=== PATIENT | male | born 1945 | race Caucasian/White ===

== ENCOUNTER → 2016-05-01 | Outpatient (CLI) | payer OTHER, BC ==
[~2016-05-01] MED LIST: OMEP40CA PO; PRED1SUS3 OPL; TRIA3AER NAE
[2016-05-01 13:17] LABS: ALT/SGPT 26 U/L (12-78); AST/SGOT 21 U/L (15-37); BLOOD UREA NITROGEN 11 mg/dl (7-18); BUN/CREATININE RATIO 11.6 (10-20); CALCIUM 8.7 mg/dl (8.5-10.1); CARBON DIOXIDE 25 mmol/L (21-32); CHLORIDE 108 mmol/L (98-107); CHOLESTEROL 247 mg/dl (0-200); CREATININE 0.92 mg/dl (0.60-1.40); GLUCOSE 106 mg/dl (70-99); POTASSIUM 4.3 mmol/L (3.5-5.1); SODIUM 142 mmol/L (136-145); TRIGLYCERIDES 59 mg/dl (0-150); VERY LOW DENSITY LIPOPROT CALC 12 mg/dl
[2016-05-01 13:23] LABS: ALB/GLOB RATIO 1.1 (0.9-2); ALKALINE PHOSPHATASE 66 U/L (45-117); CHOLESTEROL/HDL RATIO 2.7; HDL CHOLESTEROL 90 mg/dl; LDL CHOLESTEROL CALCULATED 145 mg/dl
[2016-05-01 13:54] LABS: ESTIMATED AVERAGE GLUCOSE 120 mg/dl; HA1C FLAG Normal (Normal)
--- NOTE | 2016-05-08 13:10 | CODING QUERY MEDICAL NECESSITY ---
SUPPORTING DIAGNOSIS NEEDED A supporting diagnosis is required for the test/procedure performed on this patient in order for us to be reimbursed by the patient's insurance. Please provide a supporting diagnosis for the following test/procedure listed below next to the test name along with your signature. *If there is no additional diagnosis for this patient that would support the following test/procedure please document that below next to the test/procedure. Test(s)/Procedure(s) that require a supporting diagnosis: * GLYCATED HEMOGLOBIN DIAGNOSIS: * PSA DIAGNOSIS: * DOS: 05/01/16 Provider Signature: Date: Thank you Queta Tolbert Health Information Management Once completed, please kindly fax back to [phone] For questions please call [phone]
== END | disposition home or self-care (01) ==
LOC: C.LABPBG 10:40
PROVIDERS: ATTEND Internal Medicine
DX: M48.00 Spinal stenosis, site unspecified (principal); N40.1 Benign prostatic hyperplasia with lower urinary tract symptoms; Z00.00 Encounter for general adult medical examination without abnormal findings

== ENCOUNTER → 2016-07-10 | Outpatient (CLI) | payer OTHER, BC ==
[~2016-07-10] MED LIST changes: -PRED1SUS3 OPL
--- NOTE | 2016-07-10 15:35 | DIAGNOSTIC IMAGING REPORT ---
LUMBAR SPINE MRI HISTORY: Back pain LUMBAGO, LUMBAR SPINAL STENOSIS TECHNIQUE: Multiplanar multisequence MRI of the lumbar spine was performed without the use of contrast. COMPARISON: 05/10/2015 FINDINGS: For the purpose of the report the L5-S1 disc space will be located on axial image 23 of 25. Moderate degenerative disc change throughout the entire lumbar region. This is unchanged in the prior exam. L1-L2: No significant central canal or neural foraminal narrowing. L2-L3: Broad-based bulging disc. Unchanged in the prior study. Mild anterior posterior dimension narrowing of the spinal canal. L3-L4: Broad-based posterior bulging disc. Moderate multifactorial narrowing of the spinal canal. Moderate narrowing of the neuroforamina bilaterally. L4-L5: Broad-based left central disc herniation. Prior left posterior hemilaminotomy. Moderate narrowing left neuroforamina unchanged. Moderate multilevel factorial narrowing of spinal canal unchanged. L5-S1: Mild broad-based bulging disc. No major change in the prior study. Mild narrowing of the neuroforamina bilaterally. IMPRESSION: 1. Multifactorial multilevel moderate narrowing of the spinal canal. 2. Multilevel broad-based bulging disc unchanged from the prior study. 3. Study is essentially identical to the prior exam no new or interval finding. Electronically signed by: David Barros M.D. 07/10/2016 3:33 PM Dictated Date/Time: 07/10/2016 3:28 PM
== END | disposition home or self-care (01) ==
LOC: C.MRIBC 14:21
PROVIDERS: ATTEND Physician Assistant
DX: M54.5 Low back pain (principal); M48.06 Spinal stenosis, lumbar region; M51.26 Other intervertebral disc displacement, lumbar region

== ENCOUNTER → 2016-08-15 | Outpatient (CLI) | payer OTHER, BC ==
[2016-08-15 14:35] LABS: LYME DISEASE AB IGM NEG (NEG)
[2016-08-15 14:38] LABS: LYME DISEASE AB IGG NEG (NEG)
[2016-08-19 23:28] LABS: 18KDIGG BAND NONREACTIVE (NONREACTIVE); 23KDIGG BAND NONREACTIVE (NONREACTIVE); 23KDIGM BAND NONREACTIVE (NONREACTIVE); 28KDIGG BAND NONREACTIVE (NONREACTIVE); 30KDIGG BAND NONREACTIVE (NONREACTIVE); 39KDIGG BAND NONREACTIVE (NONREACTIVE); 39KDIGM BAND NONREACTIVE (NONREACTIVE); 41KDIGG BAND REACTIVE (NONREACTIVE); 41KDIGM BAND NONREACTIVE (NONREACTIVE); 45KDIGG BAND NONREACTIVE (NONREACTIVE); 58KDIGG BAND NONREACTIVE (NONREACTIVE); 66KDIGG BAND REACTIVE (NONREACTIVE); 93KDIGG BAND NONREACTIVE (NONREACTIVE)
== END | disposition home or self-care (01) ==
LOC: C.LAB1850 11:46
PROVIDERS: ATTEND Dermatology
DX: T14.8 Other injury of unspecified body region (principal); W57.XXXA Bitten or stung by nonvenomous insect and other nonvenomous arthropods, initial encounter

== ENCOUNTER → 2016-08-15 | Outpatient (CLI) | payer OTHER, BC | END | disposition home or self-care (01) | LOC: C.PATHSPEC 16:35 | PROVIDERS: ATTEND Dermatology | DX: L43.9 Lichen planus, unspecified (principal) ==

== ENCOUNTER → 2016-09-20 | Outpatient (CLI) | payer OTHER, BC | END | disposition home or self-care (01) | LOC: C.PATHSPEC 12:30 | PROVIDERS: ATTEND Dermatology | DX: L81.4 Other melanin hyperpigmentation (principal) ==

== ENCOUNTER → 2017-06-25 | Outpatient (CLI) | payer OTHER, BC ==
--- NOTE | 2017-06-25 14:16 | DIAGNOSTIC IMAGING REPORT ---
FUSION CT SINUSES W/O CLINICAL HISTORY: 71 years-old Male presenting with J32.9 Chronic sinusitis PATIENT HAS SEVERAL YEAR HISTORY OF CHRON. TECHNIQUE: Multidetector CT of the sinuses was performed without the use of intravenous contrast. IV contrast: None. A dose lowering technique was used consistent with the principles of ALARA (as low as reasonably achievable). COMPARISON: None. CT DOSE (mGy.cm): The estimated cumulative dose is 608.56 mGy.cm. FINDINGS: Dedicated Local [employer] topogram: Unremarkable. Mild mucosal thickening in the frontal sinuses with minimal aerated secretions in the left frontal sinus. Mastoid air cells and middle ears clear. No osseous erosion. No significant sclerosis of the sinus landry to suggest chronic sinusitis. Minimal leftward deviation of the inferior aspect of the bony nasal septum without bony bridging. Mucosal thickening mildly narrows the bilateral ostiomeatal units. Mucosal thickening obstructs the right nasal frontoethmoidal recess though the left nasofrontal ethmoidal recesses patent. No other variant anatomy. No bony dehiscence of the carotid siphons or optic canals. Orbits and superficial soft tissues of the face normal. Limited intracranial evaluation within normal limits. Skull base intact. Upper cervical spine normal. IMPRESSION: 1. No CT evidence of chronic sinusitis. Possible acute sinusitis of the frontal sinuses. Resulting narrowing of the nasofrontal ethmoidal recess on the right secondary to mucosal thickening. 2. No significant variant anatomy. Electronically signed by: Anthony Evans M.D. 06/25/2017 2:15 PM Dictated Date/Time: 06/25/2017 2:12 PM
== END | disposition home or self-care (01) ==
LOC: C.CTS 13:26
PROVIDERS: ATTEND Physician Assistant
DX: J32.9 Chronic sinusitis, unspecified (principal)

== ENCOUNTER 2019-01-30 20:51 | Observation (INO) ==
[2019-01-30] MEDS ORDERED: SODIUM CHLORIDE 0.9% 1000ML 1,000 ML IV SCH (22:00)
[2019-01-30 22:19] LABS: Basophils # (auto) 0.07 K/uL (0-0.2); Basophils % (auto) 2.1 %; Eosinophils # (auto) 0.02 K/uL (0-0.5); Eosinophils % (auto) 0.6 %; Hematocrit (blood only) 44.9 % (42-52); Hemoglobin 15.3 g/dL (14.0-18.0); Lymphocytes # (auto) 0.93 K/uL (1.2-3.4); Lymphocytes % (auto) 28.1 %; Mean Corpuscular Hemoglobin 31.2 pg (25-34); Mean Corpuscular Hgb Conc 34.1 g/dL (32-36); Mean Corpuscular Volume 91.6 fL (80-100); Mean Platelet Volume 11.2 fL (7.4-10.4); Monocytes # (auto) 0.58 K/uL (0.11-0.59); Monocytes % (auto) 17.5 %; Neutrophils # (auto) 1.71 K/uL (1.4-6.5); Neutrophils % (auto) 51.7 %; Platelet Count 118 K/uL (130-400); RDW Coefficient of Variation 13.9 % (11.5-14.5); RDW Standard Deviation 46.4 fL (36.4-46.3); White Blood Count 3.31 K/uL (4.8-10.8)
[2019-01-30 22:19] LABS: Appearance Urine Clear (Clear); Bacteria Urine Automated Negative (Negative); Bilirubin Urine Negative (Negative); Blood Urine Negative (Negative); Color Urine Dark Yellow; Glucose Urine UA Negative (Negative); Ketones Urine Trace (Negative); Leukocyte Esterase Urine Negative (Negative); Nitrite Urine Negative (Negative); Protein Urine Trace (Negative); RBC Urine Automated 0-4 /hpf (0-4); Urobilinogen Urine Negative (Negative)
[2019-01-30] MEDS ORDERED: MoRPHine SULFATE 4 MG/ML 1 ML CARP\\VIAL IV STA (22:37)
[2019-01-30] MEDS ORDERED: ONDANSETRON INJ 2 MG/ML 2 ML VIAL IV STA (22:37)
[2019-01-30 22:39] LABS: Giant Platelets 1+
[2019-01-30 22:44] LABS: Albumin Level 3.8 gm/dl (3.4-5.0); BUN Creatinine Ratio 18.4 (10-20); Calcium 9.1 mg/dl (8.5-10.1); Est GFR (Non-African American) 73.3; Potassium 3.8 mmol/L (3.5-5.1)
[2019-01-30 22:46] LABS: Bilirubin,Total 0.4 mg/dl (0.2-1); Globulin 3.8 gm/dl (2.5-4.0); Total Protein 7.6 gm/dl (6.4-8.2)
--- NOTE | 2019-01-30 22:54 | Emergency Department Note ---
Entered by Gloria Hernández acting as a scribe for Kamlesh Forrest MD History of Present Illness General Chief complaint: Abdominal Pain Stated complaint: ABDOMINAL PAIN Time Seen by Provider: 01/30/19 21:38 Source: patient and family () History of Present Illness Onset (ago): month(s) (Onset was 11/24/18) Location: abdomen Maximum Pain Intensity: 3 Quality: + burning and + other (tender, bloating, gas) Relieved By: + other (standing) Exacerbated By: + eating and + rest (laying down) Associated symptoms: + denies other symptoms (pain or swelling in legs, dysuria, hematuria), + fever/chills and + other (diarrhea, weight loss) The patient is a 73 year old male with a PMHx pertinent for hernia, stomach acid, back surgery, kidney stones, and other relevant medical problems as indicated on [employer] who presents to the Emergency Room with complaints of abdominal pain. The patient explains that he began to experience abdominal gas and bloating on 11/24/18. He was seen by a PA and got an ultrasound which revealed a hernia. He explains that his hernia occasional bothers him and that lately the area feels more tender associated with a burning sensation. He also states that he is experiencing fever and chills. The patient reports that he is constantly passing gas and that his stomach "gurgles". He explains that when the gas moves to the site of his hernia he notices that the hernia "pops out". Due to pain, he reports that he has been unable to lay down in bed for the past 3 nights. Additionally, he notes that PO intake exacerbates his pain and due to this he has had lower PO intake for the last few weeks. The patient's presents concern for his 30 lb weight loss. He states that standing up and using Aspercreme relieves his pain. Of note, the patient reports diarrhea 1 week ago which has since resolved after using antibiotics. He denies dysuria, hematuria, and pain or swelling in his legs. The patient offers no additional complaints at this time. Home Medications Home Medications Medication Instructions Recorded Confirmed Type omeprazole 40 mg capsule,delayed 40 mg PO DAILY 12/30/18 01/30/19 History release ibuprofen 400 mg tablet 200 - 400 mg PO Q8H PRN tab 12/31/18 01/30/19 History loratadine 10 mg tablet 10 mg PO DAILY tab 12/31/18 01/30/19 History guaifenesin ER 600 mg tablet, 600 mg PO BID 01/13/19 01/30/19 History extended release 12 hr triamcinolone acetonide 55 mcg 2 sprays INTRANASAL DAILY ml 01/13/19 01/30/19 History nasal spray aerosol vit C 250 mg-E 200 unit-zinc 40 1 tab PO BID cap 01/13/19 01/30/19 History mg-copper 1 [id number]-[id number]-[id number] capsule Allergies Allergy/AdvReac Type Severity Reaction Status Date / Time No Known Allergies Allergy Verified 01/30/19 23:32 Past Med/Surg History Surgical History History of back surgery History of hernia repair History of oral surgery Tooth extraction History of tonsillectomy Family History Daughter Sinus disorder Son Sinus disorder Social History Preferred Language: Gabonese Communication Ability: Effective Awning Craftsperson Required: No Beliefs That Will Affect Care: None Current Living Situation: Spouse Other Information That Helps Us Care for You: No Feels Safe at Home: Yes Safety Concerns: Feels Safe At This Time Smoking Status: Former smoker Tobacco Type: cigarettes ; Hx Alcohol Use: Yes Alcohol type: beer and hard liquor Hx Substance Use: No Review of Systems See HPI for pertinent positives & negatives. and A total of 10 systems reviewed and were otherwise negative Physical Exam Vital Signs Vital Signs - 24 hr 01/31/19 00:50 Pulse Rate [Apical] 94 H Pulse Rhythm [Apical] Regular Pulse Strength [Apical] Normal Respiratory Rate 18 Respiratory Effort / Characteristics Non-Labored Respiratory Depth Normal Blood Pressure [Right Arm] 162/88 H Blood Pressure Mean [Right Arm] 112 Blood Pressure Position [Right Arm] Lying Pulse Oximetry 97 Oxygen Delivery Method Room Air General: Mildly uncomfortable appearing older male in no acute distress. HEENT: Normal cephalic atraumatic. Pupils are equal round and reactive to light. Extraocular movements are intact. Oropharynx is pink with moist mucous membranes. No swelling of the mouth lips or tongue. Neck: Supple with a midline trachea. No meningeal signs or stiffness, no JVD or bruits. No Stridor. Chest: Clear to auscultation bilaterally. No wheezes or rhonchi. No increased work of breathing. Heart: regular rate and rhythm. Abdomen: Soft with minimal tenderness centrally, nondistended without rebound guarding or rigidity. No hernia felt at present. No abscess. Extremities: No cyanosis clubbing or edema. No calf tenderness or asymmetry Spine/Back. Non tender to palpation. No CVA tenderness Skin: Good turgor without rashes. Neurologic exam: Cranial nerves two through 12 are intact. Motor and sensation are intact and symmetrical throughout. Course 2149: Past medical records reviewed. The patient was evaluated in room B07. A complete history and physical exam was performed. 2247: The patient is requesting something for pain and I have ordered him IV morphine and IV Zofran. 2349: The patient is resting comfortably after IV morphine and IV Zofran. I reviewed his blood work with him and his family. Currently waiting on CT scan report. 0039: The patient states that he is feeling better and will be admitted. 0049: Spoke with Dr. Blanton, [facility] Hospitalist who will see the patient. 0059: The patient will be admitted under the care of the hospitalist. The patient verbally expressed understanding and agreement of the treatment plan. The patient will be evaluated for further treatment. Administered Medications Ioversol (Optiray 320 125ml) 119 ml IV ONCE PRN PRN Reason: Interaction Checking Stop: 02/03/19 23:15 Last Admin: 01/30/19 23:17 Dose: 119 ml Documented by: [id number] Loratadine (Claritin) 10 mg PO DAILY EUN Stop: 03/02/19 08:59 Last Admin: 01/31/19 08:11 Dose: 10 mg Documented by: [id number] Morphine Sulfate (Morphine Sulfate) 4 mg IV Q4H PRN PRN Reason: Pain Stop: 02/14/19 02:37 Last Admin: 01/31/19 23:58 Dose: 4 mg Documented by: [id number] Admin: 01/31/19 18:13 Dose: 4 mg Documented by: [id number] Pantoprazole Sodium (Protonix) 40 mg PO BID EUN Stop: 03/02/19 08:59 Last Admin: 01/31/19 20:50 Dose: 40 mg Documented by: [id number] Admin: 01/31/19 08:11 Dose: 40 mg Documented by: [id number] Simethicone (Mylicon) 80 mg PO Q6H EUN Stop: 03/02/19 11:59 Last Admin: 01/31/19 23:44 Dose: 80 mg Documented by: [id number] Admin: 01/31/19 17:29 Dose: 80 mg Documented by: [id number] Admin: 01/31/19 11:54 Dose: 80 mg Documented by: [id number] Discontinued Medications Sodium Chloride (Nss 1000ml) 1,000 mls @ 999 mls/hr IV .Q1H1M EUN Stop: 01/30/19 23:00 Last Infusion: 01/30/19 23:18 Dose: 0 mls/hr Documented by: [id number] Admin: 01/30/19 22:05 Dose: 999 mls/hr Documented by: [id number] Morphine Sulfate (Morphine Sulfate) 4 mg IV NOW STA Stop: 01/30/19 22:38 Last Admin: 01/30/19 22:48 Dose: 4 mg Documented by: [id number] Morphine Sulfate (Morphine Sulfate) 4 mg IV NOW STA Stop: 01/31/19 01:27 Last Admin: 01/31/19 01:52 Dose: 4 mg Documented by: [id number] Morphine Sulfate (Morphine Sulfate) 4 mg IV NOW STA Stop: 01/31/19 01:29 Last Admin: 01/31/19 06:11 Dose: Not Given Documented by: [id number] Ondansetron HCl (Zofran) 4 mg IV NOW STA Stop: 01/30/19 22:38 Last Admin: 01/30/19 22:48 Dose: 4 mg Documented by: [id number] Medical Decision Making Differential Diagnosis Differential diagnosis includes but is not limited to ischemic colitis, bowel obstruction, hernia, kidney stone, aneurysm, electrolyte or metabolic abnormality. Medical Records Attestation: I reviewed the patient's medical records. Home Medications Current Medication List: was personally reviewed by me Laboratory Data Attestation: I reviewed the patient's lab results. Result diagrams: 01/31/19 06:14 01/31/19 06:14 Lab Results 01/30/19 01/30/19 01/30/19 Range/Units 21:00 21:58 21:58 WBC 3.31 L (4.8-10.8) K/uL RBC 4.90 (4.7-6.1) M/uL Hgb 15.3 (14.0-18.0) g/dL Hct 44.9 (42-52) % MCV 91.6 (80-100) fL MCH 31.2 (25-34) pg MCHC 34.1 (32-36) g/dL RDW Std Deviation 46.4 H (36.4-46.3) fL RDW Coeff of Fiona 13.9 (11.5-14.5) % Plt Count 118 L (130-400) K/uL MPV 11.2 H (7.4-10.4) fL Immature Gran % (Auto) 0.0 % Neut % (Auto) 51.7 % Lymph % (Auto) 28.1 % Canyon % (Auto) 17.5 % Eos % (Auto) 0.6 % Baso % (Auto) 2.1 % Immature Gran # (Auto) 0.00 (0.00-0.02) K/uL Neut # (Auto) 1.71 (1.4-6.5) K/uL Lymph # (Auto) 0.93 L (1.2-3.4) K/uL Canyon # (Auto) 0.58 (0.11-0.59) K/uL Eos # (Auto) 0.02 (0-0.5) K/uL Baso # (Auto) 0.07 (0-0.2) K/uL Giant Platelets 1+ Sodium 135 L (136-145) mmol/L Potassium 3.8 (3.5-5.1) mmol/L Chloride 100 (98-107) mmol/L Carbon Dioxide 28 (21-32) mmol/L Anion Gap 7.0 (3-11) BUN 18 (7-18) mg/dl Creatinine 1.00 (0.6-1.4) mg/dl Est Cr Clr Drug Dosing 68.0 ml/min Est GFR ( Amer) 85.0 Est GFR (Non-Af Amer) 73.3 BUN/Creatinine Ratio 18.4 (10-20) Glucose 93 (70-99) mg/dl Lactate (0.4-2.0) mmol/L Calcium 9.1 (8.5-10.1) mg/dl Total Bilirubin 0.4 (0.2-1) mg/dl AST 39 H (15-37) U/L ALT 38 (12-78) U/L Alkaline Phosphatase 82 (45-117) U/L Total Protein 7.6 (6.4-8.2) gm/dl Albumin 3.8 (3.4-5.0) gm/dl Globulin 3.8 (2.5-4.0) gm/dl Albumin/Globulin Ratio 1.0 (0.9-2) Lipase 296 (73-393) U/L Urine Color Dark Yellow Urine Appearance Clear (Clear) Urine pH 5.0 (4.5-7.5) Ur Specific [place] 1.030 (1.000-1.030) Urine Protein Trace H (Negative) Urine Glucose (UA) Negative (Negative) Urine Ketones Trace H (Negative) Urine Blood Negative (Negative) Urine Nitrite Negative (Negative) Urine Bilirubin Negative (Negative) Urine Urobilinogen Negative (Negative) Ur Leukocyte Esterase Negative (Negative) Urine WBC (Auto) 1-5 (0-5) /hpf Urine RBC (Auto) 0-4 (0-4) /hpf U Hyaline Cast (Auto) 1-5 (0-5) /lpf U Epithel Cells (Auto) 10-20 H (0-5) /lpf Urine Bacteria (Auto) Negative (Negative) 01/30/19 Range/Units 21:58 WBC (4.8-10.8) K/uL RBC (4.7-6.1) M/uL Hgb (14.0-18.0) g/dL Hct (42-52) % MCV (80-100) fL MCH (25-34) pg MCHC (32-36) g/dL RDW Std Deviation (36.4-46.3) fL RDW Coeff of Fiona (11.5-14.5) % Plt Count (130-400) K/uL MPV (7.4-10.4) fL Immature Gran % (Auto) % Neut % (Auto) % Lymph % (Auto) % [place] % (Auto) % Eos % (Auto) % Baso % (Auto) % Immature Gran # (Auto) (0.00-0.02) K/uL Neut # (Auto) (1.4-6.5) K/uL Lymph # (Auto) (1.2-3.4) K/uL Canyon # (Auto) (0.11-0.59) K/uL Eos # (Auto) (0-0.5) K/uL Baso # (Auto) (0-0.2) K/uL Giant Platelets Sodium (136-145) mmol/L Potassium (3.5-5.1) mmol/L Chloride (98-107) mmol/L Carbon Dioxide (21-32) mmol/L Anion Gap (3-11) BUN (7-18) mg/dl Creatinine (0.6-1.4) mg/dl Est Cr Clr Drug Dosing ml/min Est GFR ( Amer) Est GFR (Non-Af Amer) BUN/Creatinine Ratio (10-20) Glucose (70-99) mg/dl Lactate 1.2 (0.4-2.0) mmol/L Calcium (8.5-10.1) mg/dl Total Bilirubin (0.2-1) mg/dl AST (15-37) U/L ALT (12-78) U/L Alkaline Phosphatase (45-117) U/L Total Protein (6.4-8.2) gm/dl Albumin (3.4-5.0) gm/dl Globulin (2.5-4.0) gm/dl Albumin/Globulin Ratio (0.9-2) Lipase (73-393) U/L Urine Color Urine Appearance (Clear) Urine pH (4.5-7.5) Ur Specific [place] (1.000-1.030) Urine Protein (Negative) Urine Glucose (UA) (Negative) Urine Ketones (Negative) Urine Blood (Negative) Urine Nitrite (Negative) Urine Bilirubin (Negative) Urine Urobilinogen (Negative) Ur Leukocyte Esterase (Negative) Urine WBC (Auto) (0-5) /hpf Urine RBC (Auto) (0-4) /hpf U Hyaline Cast (Auto) (0-5) /lpf U Epithel Cells (Auto) (0-5) /lpf Urine Bacteria (Auto) (Negative) Imaging Data Radiologist's Impression: Radiology results as stated below per my review and the radiologist's interpretation: CT Abdomen and Pelvis Impression: 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 There appears to be collateral vessels. The superior mesenteric artery and the inferior mesenteric artery are patent. Ectasia of the infrarenal abdominal aorta. This measures up to 2.7 cm in AP dimension. Unch anged left distal ureter calculus measuring up to 9 mm with focal wall thickening of the ureter. There is no significant hydronephrosis or hydroureter. Wall thickening to urinary bladder. Recommend correlation for cystitis. Normal appendix. There is mild wall thickening versus underdistention of the colon near the splenic flexure. Otherwise, no significant bowel wall thickening is seen. Clinical correlation is recommended. Radiologist: Alec Erazo MD Study read at 2338 and initial results transmitted at [id number] Blood Pressure Blood Pressure Findings: Elevated blood pressure Blood Pressure Disposition: further management by hospitalist [facility] Narrative This patient comes in as described above. He was placed in room B7 he has been having intermittent gas and bloating. He is been followed by his regular doctor he does have a hernia in his groin that he scheduled see a surgeon this comes and goes. He was out earlier but now it is in. He says when he gets gas it pops out. He has had no fever or chills. His symptoms are worse with eating and is lost weight. I did review the recent work-up he had and he had a CAT sca n done about a week ago. 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 Based on this, I did order a lactic acid as well as other blood testing and ordered a CT angio the abdomen to further look at the vascular structures. The lactic acid is not elevated. His white count is not elevated. He has no acute electrode or metabolic abnormalities. He was given morphine 4 mg IV and Zofran 4 mgs IV for pain and nausea management. 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 There appears to be collateral vessels. The superior mesenteric artery and inferior mesenteric artery are present. There is a unchanged distal stone in the ureter without significant hydronephrosis. Normal-appearing appendix. I am concerned that with the weight loss in the abdominal pain after eating that this could be mesenteric ischemia I do think he needs to be admitted/observe for further work-up and evaluation from a GI and vascular standpoint. Have consulted Dr. Blanton to see him in the ER for these measures. Impression & Plan Mesenteric ischemia, Weight loss, Abdominal pain, Abdominal bloating Discharge Plan Visit Data *Final* Discharge Date/Time: 11/09/19 02:19 Chief Complaint: Abdominal Pain Stated Complaint: ABDOMINAL PAIN ED Provider: Kamlesh Forrest Discharge Problem: Mesenteric ischemia, Weight loss, Abdominal pain, Abdominal bloating Patient Disposition: Admitted As Inpatient Discharge Instructions Interventions: ED Discharge Assessment Last Done: 01/31/19 02:19 Discharge Problem: Abdominal pain Qualifiers: Abdominal location: generalized Qualified Code(s): R10.84 - Generalized abdominal pain The scribe's documentation has been prepared under my direction and personally reviewed by me in its entirety. I confirm that the note above accurately reflects all work, treatment, procedures, and medical decision making performed by me.
[2019-01-30] MEDS ORDERED: OPTIRAY 320 125ml IV PRN (23:16)
[2019-01-31] MEDS ORDERED: MoRPHine SULFATE 4 MG/ML 1 ML CARP\\VIAL IV STA ×2 (01:26→01:28)
--- NOTE | 2019-01-31 01:42 | History & Physical Report ---
Date of Service January 31, 2019 Assessment & Plan (1) Generalized postprandial abdominal pain: 73yo M PMH Schatzki's ring, GERD, former smoker, admitted with acute on chronic post-prandial abdominal discomfort, bloating, weight loss. Postprandial abdo pain/Abdominal bloating -Will order HIDA with kinevac to ensure GB is not cause of issues -CT concerning for celiac stenosis, without concerns for ischemic gut at this time. Will consult vascular surgery, appreciate input. -NPO -Pain control, zofran prn Schatzki's ring/severe acid reflux -Converted omeprazole to protonix PO -Pt with acid erosion of teeth requiring dental work, denture placement Chronic sinusitis -Continue claritin ARMD -Pt to bring in OTC supplement Code:FULL DVTP: SCDs Dispo: admit under obs to med/surg FEN/GI: NPO. No indication for IVF at this time; monitor. (2) Abdominal bloating: (3) Abdominal pain: (4) Weight loss: (5) Schatzki's ring: History of Present Illness Chief Complaint: Bloating, abdominal pain after eating, weight loss Primary Care Provider: Anthony Guerrero MD Pt is a pleasant 73yo M PMH GERD/Schatzki's ring, BPH, former smoker, who presents with a 3 day h/o worsening abdominal discomfort. Patient has been experiencing symptoms of bloating, abdominal pain after eating, and weight loss for a few months now. He notes a weight loss of 30 pounds in 3 months, due in part to abdominal discomfort after eating as well as recent dental work and new improperly fitting dentures. 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 He states he was referred to vascular surgery but was unable to be seen for another month. He notes in the past three days he has been laid up with severe abdominal discomfort in his RUQ particularly, unable to eat much, which prompted his visit to the ER. Pt is previous smoker, roughly 40 pack year history. ER course: 4mg morphine, zofran, NSS. Labs including lactate and LFTs were WNL. AFVSS. Statrad read of CTangio of abdomen revealed severe stenosis vs occlusion of the celiac trunk with collateral vessels apparent. Allergies Allergy/AdvReac Type Severity Reaction Status Date / Time No Known Allergies Allergy Verified 01/30/19 23:32 Home Medications Home Medications Medication Instructions Recorded Confirmed Type omeprazole 40 mg capsule,delayed 40 mg PO DAILY 12/30/18 01/30/19 History release ibuprofen 400 mg tablet 200 - 400 mg PO Q8H PRN tab 12/31/18 01/30/19 History loratadine 10 mg tablet 10 mg PO DAILY tab 12/31/18 01/30/19 History guaifenesin ER 600 mg tablet, 600 mg PO BID 01/13/19 01/30/19 History extended release 12 hr triamcinolone acetonide 55 mcg 2 sprays INTRANASAL DAILY ml 01/13/19 01/30/19 History nasal spray aerosol vit C 250 mg-E 200 unit-zinc 40 1 tab PO BID cap 01/13/19 01/30/19 History mg-copper 1 [id number] capsule Past Med/Surg History Surgical History History of back surgery History of hernia repair History of oral surgery Tooth extraction History of tonsillectomy Family History Daughter Sinus disorder Son Sinus disorder Social History Preferred Language: Armenian Communication Ability: Effective 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 Beliefs That Will Affect Care: None Current Living Situation: Spouse Other Information That Helps Us Care for You: No Feels Safe at Home: Yes Safety Concerns: Feels Safe At This Time Smoking Status: Former smoker Tobacco Type: cigarettes ; Hx Alcohol Use: Yes Alcohol type: beer and hard liquor Hx Substance Use: No Review of Systems Review of Systems: All systems reviewed & are unremarkable except as noted in HPI & below Constitutional: + anorexia and + weight loss Eyes: + worsening vision (early ARMD) Ear, Nose, Mouth, Throat: + sinus pain/pressure, + dental pain and + dental caries Respiratory: no cough and no dyspnea Cardiovascular: no chest pain and no radiating jaw, neck or arm pain Gastrointestinal: + abdominal pain, + bloating, + heartburn and + nausea; no vomiting Musculoskeletal: + back pain (prev back surgery) Physical Exam Constitutional: WD/WN, vitals as above Eyes: PERRL, conjunctivae normal, anicteric sclerae ENMT: Mouth: + dentition abnormality, + dentures and + edentulous Neck: trachea midline, no thyromegaly Respiratory: normal respiratory effort, lungs clear to auscultation Cardiovascular: RRR, no murmur, no edema Gastrointestinal (Abdomen): normal bowel sounds, soft, nontender, no hepatosplenomegaly Percussion/Palpation: + abdomen tender (RUQ +mccabe's) Musculoskeletal: no cyanosis or clubbing, extremities motor strength 5/5 Skin: no rashes, warm and dry Neurologic: patellar DTR's 2+ bilat, sensation intact Psychiatric: A+Ox3, euthymic affect Results & Data Vital Signs (Past 12 Hours) Vital Signs Temp Pulse Pulse Resp BP BP Pulse Ox 01/31/19 00:50 94 H 18 162/88 H 97 01/30/19 23:33 98 H 18 163/88 H 98 01/30/19 22:12 98 01/30/19 22:11 73 18 147/82 H 98 01/30/19 20:52 99.0 F 78 18 120/66 97 Laboratory Results 01/30/19 01/30/19 01/30/19 Range/Units 21:58 21:58 21:58 WBC 3.31 L (4.8-10.8) K/uL RBC 4.90 (4.7-6.1) M/uL Hgb 15.3 (14.0-18.0) g/dL Hct 44.9 (42-52) % MCV 91.6 (80-100) fL MCH 31.2 (25-34) pg MCHC 34.1 (32-36) g/dL RDW Std Deviation 46.4 H (36.4-46.3) fL RDW Coeff of Fiona 13.9 (11.5-14.5) % Plt Count 118 L (130-400) K/uL MPV 11.2 H (7.4-10.4) fL Immature Gran % (Auto) 0.0 % Neut % (Auto) 51.7 % Lymph % (Auto) 28.1 % Warrick % (Auto) 17.5 % Eos % (Auto) 0.6 % Baso % (Auto) 2.1 % Immature Gran # (Auto) 0.00 (0.00-0.02) K/uL Neut # (Auto) 1.71 (1.4-6.5) K/uL Lymph # (Auto) 0.93 L (1.2-3.4) K/uL Warrick # (Auto) 0.58 (0.11-0.59) K/uL Eos # (Auto) 0.02 (0-0.5) K/uL Baso # (Auto) 0.07 (0-0.2) K/uL Giant Platelets 1+ Sodium 135 L (136-145) mmol/L Potassium 3.8 (3.5-5.1) mmol/L Chloride 100 (98-107) mmol/L Carbon Dioxide 28 (21-32) mmol/L Anion Gap 7.0 (3-11) BUN 18 (7-18) mg/dl Creatinine 1.00 (0.6-1.4) mg/dl Est Cr Clr Drug Dosing 68.0 ml/min Est GFR ( Amer) 85.0 Est GFR (Non-Af Amer) 73.3 BUN/Creatinine Ratio 18.4 (10-20) Glucose 93 (70-99) mg/dl Lactate 1.2 (0.4-2.0) mmol/L Calcium 9.1 (8.5-10.1) mg/dl Total Bilirubin 0.4 (0.2-1) mg/dl AST 39 H (15-37) U/L ALT 38 (12-78) U/L Alkaline Phosphatase 82 (45-117) U/L Total Protein 7.6 (6.4-8.2) gm/dl Albumin 3.8 (3.4-5.0) gm/dl Globulin 3.8 (2.5-4.0) gm/dl Albumin/Globulin Ratio 1.0 (0.9-2) Lipase 296 (73-393) U/L Urine Color Urine Appearance (Clear) Urine pH (4.5-7.5) Ur Specific Newton (1.000-1.030) Urine Protein (Negative) Urine Glucose (UA) (Negative) Urine Ketones (Negative) Urine Blood (Negative) Urine Nitrite (Negative) Urine Bilirubin (Negative) Urine Urobilinogen (Negative) Ur Leukocyte Esterase (Negative) Urine WBC (Auto) (0-5) /hpf Urine RBC (Auto) (0-4) /hpf U Hyaline Cast (Auto) (0-5) /lpf U Epithel Cells (Auto) (0-5) /lpf Urine Bacteria (Auto) (Negative) 01/30/19 Range/Units 21:00 WBC (4.8-10.8) K/uL RBC (4.7-6.1) M/uL Hgb (14.0-18.0) g/dL Hct (42-52) % MCV (80-100) fL MCH (25-34) pg MCHC (32-36) g/dL RDW Std Deviation (36.4-46.3) fL RDW Coeff of Fiona (11.5-14.5) % Plt Count (130-400) K/uL MPV (7.4-10.4) fL Immature Gran % (Auto) % Neut % (Auto) % Lymph % (Auto) % Warrick % (Auto) % Eos % (Auto) % Baso % (Auto) % Immature Gran # (Auto) (0.00-0.02) K/uL Neut # (Auto) (1.4-6.5) K/uL Lymph # (Auto) (1.2-3.4) K/uL Warrick # (Auto) (0.11-0.59) K/uL Eos # (Auto) (0-0.5) K/uL Baso # (Auto) (0-0.2) K/uL Giant Platelets Sodium (136-145) mmol/L Potassium (3.5-5.1) mmol/L Chloride (98-107) mmol/L Carbon Dioxide (21-32) mmol/L Anion Gap (3-11) BUN (7-18) mg/dl Creatinine (0.6-1.4) mg/dl Est Cr Clr Drug Dosing ml/min Est GFR ( Amer) Est GFR (Non-Af Amer) BUN/Creatinine Ratio (10-20) Glucose (70-99) mg/dl Lactate (0.4-2.0) mmol/L Calcium (8.5-10.1) mg/dl Total Bilirubin (0.2-1) mg/dl AST (15-37) U/L ALT (12-78) U/L Alkaline Phosphatase (45-117) U/L Total Protein (6.4-8.2) gm/dl Albumin (3.4-5.0) gm/dl Globulin (2.5-4.0) gm/dl Albumin/Globulin Ratio (0.9-2) Lipase (73-393) U/L Urine Color Dark Yellow Urine Appearance Clear (Clear) Urine pH 5.0 (4.5-7.5) Ur Specific Newton 1.030 (1.000-1.030) Urine Protein Trace H (Negative) Urine Glucose (UA) Negative (Negative) Urine Ketones Trace H (Negative) Urine Blood Negative (Negative) Urine Nitrite Negative (Negative) Urine Bilirubin Negative (Negative) Urine Urobilinogen Negative (Negative) Ur Leukocyte Esterase Negative (Negative) Urine WBC (Auto) 1-5 (0-5) /hpf Urine RBC (Auto) 0-4 (0-4) /hpf U Hyaline Cast (Auto) 1-5 (0-5) /lpf U Epithel Cells (Auto) 10-20 H (0-5) /lpf Urine Bacteria (Auto) Negative (Negative) Code Status & VTE Plan Code Status FULL VTE Prophylaxis Plan VTE Prophylaxis will be ordered: Yes Supervising Physician Co-Signing Physician Notes Patient was seen and examined by me personally. I reviewed the chart, the orders and discussed the case in detail with Dr. Nneka Cook MD . I read this H&P and agree with its contents to entirety. Resident Activity Tracking Resident Involvement: Resident Care Provided Care Provided: Adult Hospital Medicine (1) Abdominal pain Abdominal location: generalized Qualified Code(s): R10.84 - Generalized abdominal pain
[2019-01-31] MEDS ORDERED: ACETAMINOPHEN 325 MG TAB PO PRN (02:38)
[2019-01-31] MEDS ORDERED: MAGNESIUM HYDROXIDE SUSP 30 ML UDC PO PRN (02:38)
[2019-01-31] MEDS ORDERED: POLYETHYLENE (MIRALAX) 17 GM PACK PO PRN (02:38)
[2019-01-31] MEDS ORDERED: ALUMINUM/MAGNESIUM SUSP 30 ML UDC PO PRN (02:38)
[2019-01-31] MEDS ORDERED: ONDANSETRON INJ 2 MG/ML 2 ML VIAL IV PRN (02:38)
--- NOTE | 2019-01-31 05:18 | Billing Data ---
Coding Level of Care Code 05120 OBS Care - Level 3
--- NOTE | 2019-01-31 06:24 | CT Scan Report ---
CT angio abdomen pelvis w con CT DOSE: 409.44 mGy.cm CLINICAL HISTORY: Diffuse abdominal pain. Suspected ischemic colitis. TECHNIQUE: CT angiography abdomen and pelvis was performed in a dynamic helical fashion during intrav enous administration of 119 cc of Optiray 320. MIP images were acquired. A dose lowering technique w as utilized adhering to the principles of ALARA. COMPARISON STUDY: 01/22/2019 FINDINGS: Visualized portions of the lung bases are unremarkable. No hepatic, splenic, or pancreatic masses are visualized. No gallbladder abnormalities are evident. No adrenal masses are visualized. 17 mm right renal cyst. There is no hydronephrosis. There is a 9 mm left UVJ calculus. No significant obstructive changes are visualized. There are no transition zones to indicate bowel obstruction. There is no acute diverticulitis. There are no findings to indicate acute appendicitis. There is equivocal minor bowel wall thickening at the level of the splenic flexure, versus a nondistended segment. There are small fat-containing bilateral inguinal hernias. The celiac artery appears occluded. There is no evidence of superior mesenteric artery stenosis. Ther e is no evidence of renal artery stenosis. The inferior mesenteric artery is patent. There is mild in frarenal abdominal aortic ectasia. Aorta measures 26 mm. There is no evidence of hemodynamic signific ant iliac artery stenosis. The prostate is enlarged. There is bladder wall thickening. IMPRESSION: 1. Severe stenosis versus subtotal occlusion of the celiac trunk. 2. Collateral vessels are visualized 3. No evidence of superior mesenteric artery stenosis. No evidence of renal artery stenosis. The infe rior mesenteric artery is patent. 4. Persistent 9 mm left UVJ calculus with associated focal ureteral wall thickening. No significant h ydronephrosis 5. No evidence of bowel obstruction. No evidence of free air 6. Prostatomegaly with bladder wall thickening 7. Minimal bladder wall thickening at the level splenic flexure versus a nondistended segment. Electronically signed by: Volodymyr Rico M.D. 01/31/2019 6:23 AM
[2019-01-31 06:32] LABS: Basophils # (auto) 0.05 K/uL (0-0.2); Basophils % (auto) 1.5 %; Eosinophils # (auto) 0.02 K/uL (0-0.5); Eosinophils % (auto) 0.6 %; Hematocrit (blood only) 41.5 % (42-52); Hemoglobin 13.9 g/dL (14.0-18.0); Lymphocytes % (auto) 34.7 %; Mean Corpuscular Hemoglobin 30.7 pg (25-34); Mean Corpuscular Hgb Conc 33.5 g/dL (32-36); Mean Corpuscular Volume 91.6 fL (80-100); Mean Platelet Volume 10.8 fL (7.4-10.4); Monocytes # (auto) 0.72 K/uL (0.11-0.59); Neutrophils # (auto) 1.45 K/uL (1.4-6.5); Neutrophils % (auto) 42.2 %; Platelet Count 112 K/uL (130-400); Red Blood Count 4.53 M/uL (4.7-6.1); White Blood Count 3.43 K/uL (4.8-10.8)
[2019-01-31 06:56] LABS: Albumin Level 3.4 gm/dl (3.4-5.0); BUN Creatinine Ratio 16.6 (10-20); Calcium 8.8 mg/dl (8.5-10.1); Creatinine Clr Calc Pharmacy 78.1 ml/min; Est GFR (African American) 97.8; Est GFR (Non-African American) 84.4; Potassium 4.7 mmol/L (3.5-5.1)
[2019-01-31 07:05] LABS: Albumin Globulin Ratio 1.1 (0.9-2); Bilirubin,Total 0.3 mg/dl (0.2-1); Globulin 3.1 gm/dl (2.5-4.0); Total Protein 6.5 gm/dl (6.4-8.2)
[2019-01-31 08:03] LABS: Lymphocytes # (auto) 1.19 K/uL (1.2-3.4)
[2019-01-31] MEDS: LORATADINE 10 MG TAB PO SCH (08:11)
[2019-01-31] MEDS: PANTOprazole 40 MG TAB PO SCH ×2 (08:11→20:50)
--- NOTE | 2019-01-31 08:26 | Consultation ---
Date of Consultation January 31, 2019 Assessment & Plan (1) Occlusion of celiac artery: At the pleasure of seeing Mr. Stout today for evaluation of his celiac artery occlusion. I do not think his symptoms are secondary to the occlusion. Although his pain does come on after eating and he eats small meals it also comes on after drinking small sips of water and taking the pill. He can also get the bloating and discomfort when he does not eat. 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 It is well collateralized from the superior mesenteric artery which is widely patent. From a vascular standpoint no further work-up or intervention is needed. Thank you very much for letting us participate in the care of this patient. History of Present Illness Reason for Consultation: Celiac artery occlusion Attending Physician: Mica Adhikari DO History of Present Illness This is a 73-year-old gentleman who has a history of gastroesophageal reflux with Schatzki's ring. He presented with a 3 to 4-day history of worsening abdominal pain. He also has symptoms of bloating and diarrhea. He claims this started in the summer when he had his dental work. Since then he is lost 30 pounds in the last 3 months. He does have abdominal discomfort. He claims it moves around throughout the abdomen. He can related to eating however it also comes on if he has a sip of fluids. He claims that the bloating occurs just before the pain. It is relieved with passing gas and occasionally with liquid stools and gas. He denies any previous abdominal surgery. He does claim he has a hernia in the right lower quadrant which is easily reducible and does protrude significantly once he has his bloating. Allergies Allergy/AdvReac Type Severity Reaction Status Date / Time No Known Allergies Allergy Verified 01/30/19 23:32 Home Medications Home Medications Medication Instructions Recorded Confirmed Type omeprazole 40 mg capsule,delayed 40 mg PO DAILY 12/30/18 01/30/19 History release ibuprofen 400 mg tablet 200 - 400 mg PO Q8H PRN tab 12/31/18 01/30/19 History loratadine 10 mg tablet 10 mg PO DAILY tab 12/31/18 01/30/19 History guaifenesin ER 600 mg tablet, 600 mg PO BID 01/13/19 01/30/19 History extended release 12 hr triamcinolone acetonide 55 mcg 2 sprays INTRANASAL DAILY ml 01/13/19 01/30/19 History nasal spray aerosol vit C 250 mg-E 200 unit-zinc 40 1 tab PO BID cap 01/13/19 01/30/19 History mg-copper 1 [id number] capsule Patient History Surgical History History of back surgery History of hernia repair History of oral surgery Tooth extraction History of tonsillectomy Family History Daughter Sinus disorder Son Sinus disorder Social History Preferred Language: Indonesian Communication Ability: Effective Ledger Clerk Required: No Beliefs That Will Affect Care: None Current Living Situation: Spouse Other Information That Helps Us Care for You: No Feels Safe at Home: Yes Safety Concerns: Feels Safe At This Time Smoking Status: Former smoker Tobacco Type: cigarettes ; Hx Alcohol Use: Yes Alcohol type: beer and hard liquor Hx Substance Use: No Review of Systems Review of Systems: All systems reviewed & are unremarkable except as noted in HPI & below Constitutional: + anorexia and + weight loss Eyes: + worsening vision Genitourinary: + problem reported (Kidney stone) Musculoskeletal: Back pain Physical Exam Constitutional: WD/WN, vitals as above Respiratory: normal respiratory effort; no respiratory distress Cardiovascular: Rate/Rhythm: regular rate and regular rhythm Vessels: normal peripheral pulses Gastrointestinal (Abdomen): Inspection/Auscultation: abdomen normal to inspection; abdomen not distended Percussion/Palpation: abdomen nontender Psychiatric: A+Ox3, euthymic affect Results & Data Vital Signs (Past 12 Hours) Vital Signs Temp Pulse Pulse Pulse Resp BP BP 01/31/19 07:27 37.2 C 76 16 135/71 01/31/19 03:22 37.4 C 01/31/19 02:42 37.9 C H 85 16 139/73 01/31/19 02:19 98 H 18 173/94 H 01/31/19 00:50 94 H 18 162/88 H 01/30/19 23:33 98 H 18 163/88 H 01/30/19 22:12 01/30/19 22:11 73 18 147/82 H 01/30/19 20:52 37.2 C 78 18 120/66 Pulse Ox 01/31/19 07:27 95 01/31/19 03:22 01/31/19 02:42 95 01/31/19 02:19 97 01/31/19 00:50 97 01/30/19 23:33 98 01/30/19 22:12 98 01/30/19 22:11 98 01/30/19 20:52 97
[2019-01-31] MEDS: SIMETHICONE 80 MG CHEW PO SCH ×3 (11:54→23:44)
--- NOTE | 2019-01-31 15:10 | Gastrointestinal Consultation ---
Date of Consultation January 31, 2019 Assessment & Plan (1) Abdominal pain: with associated significant weight loss. differential includes peptic ulcer disease, functional dyspepsia, IBS, however given the significant weight loss must also consider malignancy and cannot entirely rule out celiac artery compression syndrome. Vascular surgery consult and recs appreciated. Recs: --if patient is to remain inpatient through the weekend, then will plan for diagnostic EGD on friday 02/02 to further evaluate (would need to be NPO post midnight). If he is to be discharged before then, then he can follow up with my office and we will schedule him directly for EGD this coming week. --supportive care, diet as tolerated Thank you for allowing me to participate in the care of this patient. (2) Abdominal bloating: History of Present Illness Attending Physician: Mica Adhikari, 73 yo male here for abdominal pain and bloating. GI consulted for this. He notes he has issues with abdominal pain for the last 3 months, described as across his midabdomen, worse after eating occurring 30 min-1 hour after he eats every time, 5/10, with significant bloating and gas. He also notes he had diarrhea up until 2 weeks ago. His PCP had placed him on flagyl for 10 days to empirically treat cdiff it appears, and patient notes the diarrhea had resolved. Cdiff testing was negative. In terms of his pain, it also goes around to his back at times, and the patient notes significant reflux and heartburn. He had an EGD 2 years ago and was found to have a schatzki ring. No hematochezia, hematemesis, n/v at this time. Denies other symptoms. Labs reviewed, mostly unremarkable. Imaging reviewed, suggestive of celiac trunk/artery stenosis (severe) vs. occlusion. EGD as above. Allergies Allergy/AdvReac Type Severity Reaction Status Date / Time No Known Allergies Allergy Verified 01/30/19 23:32 Home Medications Home Medications Medication Instructions Recorded Confirmed Type omeprazole 40 mg capsule,delayed 40 mg PO DAILY 12/30/18 01/30/19 History release ibuprofen 400 mg tablet 200 - 400 mg PO Q8H PRN tab 12/31/18 01/30/19 History loratadine 10 mg tablet 10 mg PO DAILY tab 12/31/18 01/30/19 History guaifenesin ER 600 mg tablet, 600 mg PO BID 01/13/19 01/30/19 History extended release 12 hr triamcinolone acetonide 55 mcg 2 sprays INTRANASAL DAILY ml 01/13/19 01/30/19 History nasal spray aerosol vit C 250 mg-E 200 unit-zinc 40 1 tab PO BID cap 01/13/19 01/30/19 History mg-copper 1 [id number]-[id number] capsule Patient History Surgical History History of back surgery History of hernia repair History of oral surgery Tooth extraction History of tonsillectomy Family History Daughter Sinus disorder Son Sinus disorder Social History Preferred Language: Martiniquais Communication Ability: Effective Idea Worker Required: No Beliefs That Will Affect Care: None Current Living Situation: Spouse Other Information That Helps Us Care for You: No Feels Safe at Home: Yes Safety Concerns: Feels Safe At This Time Smoking Status: Former smoker Tobacco Type: cigarettes ; Hx Alcohol Use: Yes Alcohol type: beer and hard liquor Hx Substance Use: No Review of Systems Constitutional: no fever, no chills and no weight loss Eyes: as per Subjective / HPI Ear, Nose, Mouth, Throat: as per Subjective / HPI Respiratory: no dyspnea and no dyspnea on exertion Cardiovascular: no chest pain and no palpitations Gastrointestinal: as per Subjective / HPI Musculoskeletal: no joint pain and no swelling Integumentary: no rash and no lesions Neurologic: no numbness and no paresthesia Psychiatric: no depression and no anxiety Endocrine: no fatigue Hematologic / Lymphatic: no easy bleeding and no easy bruising Physical Exam Constitutional: WD/WN, vitals as above Eyes: EOM intact bilaterally Neck: normal visual inspection Respiratory: normal respiratory effort, lungs clear to auscultation Cardiovascular: RRR, no murmur, no edema Gastrointestinal (Abdomen): Inspection/Auscultation: abdomen normal to inspection; abdomen not distended Percussion/Palpation: abdomen soft; abdomen nontender and no hepatosplenomegaly Musculoskeletal: Extremities: no cyanosis Gait: normal gait Skin: no rashes, warm and dry Neurologic: moves all extremities Psychiatric: A+Ox3, euthymic affect Results & Data Vital Signs (Past 12 Hours) Vital Signs Temp Pulse Resp BP Pulse Ox 01/31/19 07:27 37.2 C 76 16 135/71 95 01/31/19 03:22 37.4 C PG Care Time/CCT Total # of Minutes Spent Total Time Spent with Patient: Total time spent is greater than 50% in coordination of care (as documented) at patient's floor/unit and/or counseling patient: (1) Abdominal pain Abdominal location: generalized Qualified Code(s): R10.84 - Generalized abdominal pain
--- NOTE | 2019-01-31 17:58 | Hospitalist Progress Note ---
Date of Service January 31, 2019 Assessment & Plan (1) Generalized postprandial abdominal pain: 73yo M PMH Schatzki's ring, GERD, former smoker, admitted with acute on chronic post-prandial abdominal discomfort, bloating, weight loss. Acute on Chronic postprandial abdominal pain/Abdominal bloating -Plan initially to order HIDA while inpatient, but EF not available over the weekend, can do outpatient HIDA to further evaluate gallbladder pathology -GI consulted, consider outpatient EGD to further evaluate -CT concerning for celiac stenosis, without concerns for ischemic gut at this time. -diet advanced to full liquid -ordered simethicone for gas/bloating symptom relief -placed order for celiac serology, will follow up -Pain control, zofran prn Schatzki's ring/severe acid reflux -Converted omeprazole to protonix PO per hospital formulary. Can restart home omeprazole on discharge. -Pt with acid erosion of teeth requiring dental work, denture placement Chronic sinusitis -Continue Claritin ARMD -Pt to bring in OTC supplement Code:FULL DVTP: SCDs Dispo: obs, anticipate discharge tomorrow unless new concerning symptoms FEN/GI: full liquid. (2) Abdominal bloating: (3) Abdominal pain: (4) Weight loss: (5) Schatzki's ring: Supervising Physician Co-Signing Physician Notes Patient seen and examined with PGY-1 Dr. Menchaca. Agree with history, exam findings, assessment and plan of care as outlined. In brief, Mr. Stout is a 73 year old male with history of prior Schatzki's rings that have been dilated admitted with months of post-prandial pain and unintentional weight loss due to the pain and bloating associated with oral intake. There was some change in his abdominal pain prior to presenting to the ED. He had called his PCP who advised him to present to the emergency department. 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 He was admitted for evaluation by vascular surgery. Dr. Sanches saw the patient this morning. Does not think that the stenosis or occlusion is the cause of Mr. Stout's symptoms. We discussed that further work up can be done as an outpatient, but he does not feel comfortable being discharged. Ddx includes malignancy vs celiac artery compression vs demand ischemia vs peptic ulcer. We will start simethicone for some of his bloating and gas. He is already on a PPI. Added a celiac panel to his blood work. Advanced diet to full liquids. Appreciate GI recommendations. Anticipate that we will be able to discharge him home in the morning, barring any new concerning symptoms that require hospital care, and he can have an EGD with GI as an outpatient soon. Would also recommend that he follow up in the GI office for additional work up/treatment. Subjective Miguel Stout is doing okay this morning. He states that vascular surgery had seen him this morning and informed him that his vascular issues were an older problem and that it was correcting itself and surgery would have a lot of risks involved. He discussed with me that his issues started back in September when he had oral surgery, for which he was given antibiotics and after which he experienced severe diarrhea and has been since having increased boating and gas. He states that he is not having diarrhea currently. He is currently not in pain but his pain is around a 2/10 after eating. The pain typically starts one hour after eating and can last several hours. Review of Systems Constitutional: no fever and no chills Respiratory: no cough and no sputum production denies shortness of breath Cardiovascular: no chest pain and no palpitations Gastrointestinal: no nausea, no vomiting and no diarrhea/loose stools Genitourinary: + dysuria; no urinary frequency and no hematuria Neurologic: no headache(s) Physical Exam Physical Exam: Constitutional: walking around room, NAD Neuro: alert and oriented CV: RRR, no m/r/g appreciated Resp: CTAB Abd: TTP LLQ Back: no CVA tenderness Skin: w/d/i Extremities: nTTP calf, negative Homans Results & Data Vital Signs (Past 12 Hours) Vital Signs Temp Pulse Resp BP Pulse Ox 01/31/19 15:12 37.3 C 65 16 130/72 94 01/31/19 07:27 37.2 C 76 16 135/71 95 Resident Activity Tracking Resident Involvement: Resident Care Provided Care Provided: Adult Hospital Medicine (1) Abdominal pain Abdominal location: generalized Qualified Code(s): R10.84 - Generalized abdominal pain
[2019-01-31] MEDS: MoRPHine SULFATE 4 MG/ML 1 ML CARP\\VIAL IV PRN ×2 (18:13→23:58)
[2019-02-01] MEDS: SIMETHICONE 80 MG CHEW PO SCH ×2 (05:32→11:22)
[2019-02-01 05:48] LABS: Basophils # (auto) 0.14 K/uL (0-0.2); Eosinophils # (auto) 0.12 K/uL (0-0.5); Eosinophils % (auto) 2.6 %; Hematocrit (blood only) 41.4 % (42-52); Hemoglobin 13.9 g/dL (14.0-18.0); Immature Granulocytes # (auto) 0.01 K/uL (0.00-0.02); Immature Granulocytes % (auto) 0.2 %; Lymphocytes # (auto) 2.17 K/uL (1.2-3.4); Lymphocytes % (auto) 46.9 %; Mean Corpuscular Hemoglobin 30.6 pg (25-34); Mean Corpuscular Hgb Conc 33.6 g/dL (32-36); Mean Corpuscular Volume 91.2 fL (80-100); Mean Platelet Volume 11.3 fL (7.4-10.4); Monocytes # (auto) 0.88 K/uL (0.11-0.59); Neutrophils # (auto) 1.31 K/uL (1.4-6.5); Neutrophils % (auto) 28.3 %; Platelet Count 132 K/uL (130-400); RDW Coefficient of Variation 13.9 % (11.5-14.5); RDW Standard Deviation 46.3 fL (36.4-46.3); Red Blood Count 4.54 M/uL (4.7-6.1); White Blood Count 4.63 K/uL (4.8-10.8)
[2019-02-01 06:18] LABS: BUN Creatinine Ratio 15.1 (10-20); Creatinine Clr Calc Pharmacy 91.9 ml/min; Est GFR (African American) 104.6; Est GFR (Non-African American) 90.2; Potassium 4.3 mmol/L (3.5-5.1)
[2019-02-01] MEDS: PANTOprazole 40 MG TAB PO SCH (07:42)
[2019-02-01] MEDS: LORATADINE 10 MG TAB PO SCH (08:27)
--- NOTE | 2019-02-01 15:30 | Discharge Summary ---
Date of Service February 01, 2019 Admission HPI Per Admitting Provider Pt is a pleasant 73yo M PMH GERD/Schatzki's ring, BPH, former smoker, who presents with a 3 day h/o worsening abdominal discomfort. Patient has been experiencing symptoms of bloating, abdominal pain after eating, and weight loss for a few months now. He notes a weight loss of 30 pounds in 3 months, due in part to abdominal discomfort after eating as well as recent dental work and new improperly fitting dentures. 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 He states he was referred to vascular surgery but was unable to be seen for another month. He notes in the past three days he has been laid up with severe abdominal discomfort in his RUQ particularly, unable to eat much, which prompted his visit to the ER. Pt is previous smoker, roughly 40 pack year history. ER course: 4mg morphine, zofran, NSS. Labs including lactate and LFTs were WNL. AFVSS. Statrad read of CTangio of abdomen revealed severe stenosis vs occlusion of the celiac trunk with collateral vessels apparent. Admission Exam Per Admitting Provider Constitutional: WD/WN, vitals as above Eyes: PERRL, conjunctivae normal, anicteric sclerae ENMT: Mouth: + dentition abnormality, + dentures and + edentulous Neck: trachea midline, no thyromegaly Respiratory: normal respiratory effort, lungs clear to auscultation Cardiovascular: RRR, no murmur, no edema Gastrointestinal (Abdomen): normal bowel sounds, soft, nontender, no hepatosplenomegaly Percussion/Palpation: + abdomen tender (RUQ +mccabe's) Musculoskeletal: no cyanosis or clubbing, extremities motor strength 5/5 Skin: no rashes, warm and dry Neurologic: patellar DTR's 2+ bilat, sensation intact Psychiatric: A+Ox3, euthymic affect Principal Diagnosis postprandial bloating Schatzki's ring reflux sinusitis Discharge Exam Constitutional: walking around in NAD Neuro: alert and oriented CV: RRR, S1S2 nl, no m/r/g Resp: CTAB Abd: slightly tender to palpation in RLQ Skin: warm, dry, and intact Ext: calf nTTP bilaterally, Homans negative Discharge Data Allergies Allergy/AdvReac Type Severity Reaction Status Date / Time No Known Allergies Allergy Verified 02/02/19 09:14 Consultations 01/31/19 00:39 ED Decision to Admit Stat 01/31/19 02:38 Consult Vascular Surgery Routine 01/31/19 14:25 Consult Gastroenterology Routine 01/31/19 18:40 Consult Case Management - Discharge Planning Routine Ordered Studies 01/30/19 21:53 CT angio abdomen pelvis w con Urgent Hospital Course (1) Generalized postprandial abdominal pain: 73yo M PMHx. Schatzki's ring, GERD, former smoker, admitted with chronic post-prandial abdominal discomfort, bloating, and weight loss. Chronic postprandial abdominal discomfort and abdominal bloating -initial CT concerning for celiac stenosis, without concerns for ischemic gut. Vascular surgery consulted, no indications for surgery at this time given collateral vessels and risk involved in surgery. -GI consulted for abdominal pain with associated significant weight loss. differential includes peptic ulcer disease, functional dyspepsia, IBS, however given the significant weight loss must also consider malignancy and cannot entirely rule out celiac artery compression syndrome. Recs: --follow up with Gi as an outpatient and will schedule him directly for EGD this coming week. --supportive care, diet as tolerated - discussed avoiding gas producing foods to help with symptoms despite unclear etiology -ordered celiac serology, follow up outpatient Other chronic issues were stable and home medications continued Code:FULL (2) Abdominal bloating: (3) Abdominal pain: (4) Weight loss: (5) Schatzki's ring: Total Time Total Time Spent Total Time Spent (In Minutes): Discharge Plan Discharge Items Patient Disposition: Home - Self-Care Reason For Visit: CELIAC ARTERY STENOSIS,MESENTERIC ISCHEMIA Discharge Diagnosis: abdominal bloating Activity: Per Instructions section Non-emergency contact: Primary Care Provider Call non-emergency contact if: your symptoms worsen Follow-up/Referrals: Anthony Guerrero MD [Primary Care Provider] - Diet: Regular Addtl Attending Provider Instructions: You were admitted to further evaluate your abdominal pain and bloating. While you were in the hospital you saw vascular surgery to evaluate you for stenosis of your celiac artery. They discussed that you have developed other arteries over time that provide blood to the area that was narrow. Surgery was not indicated, since the body is correcting the stenosis by bypassing it. The surgery would also be extensive and have a lot of risk involved. You were evaluated by gastroenterology while you were here and they thought that you should have a upper endoscopic evaluation done as an outpatient. They will do this to further evaluate the cause of your abdominal bloating. The number for Gastroenterology is: . If you are not contacted by Saturday then you can call to schedule for your endoscopy. There were no changes made to your home medications. You can alter you diet to decrease gas producing foods such as: cabbage, legumes, onions, broccoli, brussel sprouts, wheat, and potatoes. You do not need to stop eating these foods, but may want to limit them to see if it helps with your symptoms of gas and bloating. You can also continue to try over the counter medications such as Simethicone. You have had weight loss and it will be important to continue to eat consistently despite the abdominal bloating. Try to focus on foods that don't cause as much bloating and consider adding protein shakes to your diet. We did some labs to evaluate you for Celiac disease and these were not back when you were discharged from the hospital. You will need to follow up with your primary doctor for the results of these studies. You will follow up with your PCP, as well as GI to have upper endoscopy. Return precautions include if you are having fevers >101 for >4 hours and increased pain with nausea and vomiting, or black or bloody stools. Pending Studies at Discharge: Yes Studies:: Celiac labs Stand-Alone Forms: Call Back Authorization, My [facility], Smoking Cessation Medications and DC Order Prescriptions: Continued PreserVision AREDS-2 [id number] pw-[id number]-mg capsule 1 tab PO BID RF: 0 guaifenesin [Mucinex] 600 mg tablet extended release 12hr 600 mg PO BID RF: 0 omeprazole 40 mg capsule,delayed release(DR/EC) 40 mg PO QAM RF: 0 ibuprofen 400 mg tablet 200 - 400 mg PO Q8H PRN (Reason: pain/fever) RF: 0 loratadine 10 mg tablet 10 mg PO QAM RF: 0 triamcinolone acetonide 55 mcg aerosol,spray 2 sprays intranasal QPM RF: 0 Discharge Orders: Discharge Order (Routine); Ordered 02/01/19 Ordered By: Edmond Romero/Other Patient Handouts: DVT Prevent, Occlusion Acute Arterial Admission Data Admit Date/Time: 01/31/19 01:41 Attending Provider: Mica Adhikari Admit Provider: Nneka Cook Primary Care Provider: Anthony Guerrero Other Providers: Nickolas Blanton ; Masoud Sanches ; Alec Lee Other Interventions: Discharge Summary Assessment (RN) Last Done: 02/01/19 11:00 DC Date/Time DO NOT enter until pt leaves facility: 02/01/19 14:49 Supervising Physician Co-Signing Physician Notes Patient seen and examined with PGY-1 Dr. Montanez. Agree with history, exam findings, assessment and plan of care as outlined. In brief, Mr. Stout is a 73 year old male with history of prior Schatzki's r ings that have been dilated admitted with months of post-prandial pain and unintentional weight loss due to the pain and bloating associated with oral intake. He was able to tolerate a regular diet here, although did have some gas and bloating. Seen by vascular surgery who does not think that the finding of celiac artery stenosis/occlusion is the cause of his discomfort given the many collateral vessels and there is no reason to intervene at this point for his standpoint. Also seen by GI. Will be scheduled for an outpatient EGD. Celiac panel pending as well. Follow up with PCP and GI on discharge. Resident Activity Tracking Resident Involvement: Resident Care Provided Care Provided: Adult Hospital Medicine
[2019-02-08 15:12] LABS: IgA Serum 245 mg/dL (20-320); Tis Trans IgA 2 U/mL (<4)
== END 2019-02-01 14:49 | disposition home or self-care (01) ==
LOC: ED 20:51 → 3N 20:51 → SUATTDRO 01-31 01:41 → 3N 01-31 02:19